=== PATIENT | female | born 1970 | race American Indian/Alaskan Native ===

== ENCOUNTER 2018-02-25 19:07 | Observation (INO) | payer BC, MEDICAID, OTHER ==
[2018-02-25 19:08] VITALS: BMI 19.8
[2018-02-25] MEDS ORDERED: Famotidine 20mg/50ml 20 MG/50 ML BAG IVPB STA (19:32)
[2018-02-25] MEDS ORDERED: Sodium Chloride 0.9% 1,000 ML IV STA ×2 (19:33→22:18)
[2018-02-25] MEDS ORDERED: Famotidine 20mg/50ml 20 MG/50 ML BAG IVPB ONE (19:33)
--- NOTE | 2018-02-25 19:36 | ED PDOC ---
HPI: General Adult Time Seen by Provider: 02/25/18 19:34 Chief Complaint (Nursing): Dizziness/Lightheaded Chief Complaint (Provider): dizziness/vomiting History Per: Patient (47 y/o female h/o Diabetes/ gastroparesis here for abdominal pain /dizziness/vomiting. States she was seen at [facility] for similar illness. Denies any fevers/chills. Has had surgery Cxn/ovarian mass removal.) Past Medical History Reviewed: Historical Data, Nursing Documentation, Vital Signs Vital Signs: Last Vital Signs Temp 98.0 F 02/26/18 15:02 Pulse 100 H 02/26/18 15:02 Resp 22 02/26/18 15:02 BP 144/90 02/26/18 15:02 Pulse Ox 100 02/26/18 15:02 - Medical History PMH: Anxiety, Arthritis, Cardia Arrhythmia (TACHYCARDIA), Depression, Diabetes, Gastritis, GERD, HTN, Hyperthyroidism, Migraine, Pneumonia Denies: Hepatitis, Hypothyroidism, Chronic Kidney Disease - Surgical History Surgical History: Endoscopy - Family History Family History: States: Unknown Family Hx - Immunization History Hx Tetanus Toxoid Vaccination: No Hx Influenza Vaccination: No Hx Pneumococcal Vaccination: Yes - Home Medications Home Medications: Ambulatory Orders Medication Instructions Recorded Propranolol [Inderal] 20 mg PO BID 12/07/15 ALPRAZolam [Xanax] 1 mg PO DAILY 12/03/16 Metoclopramide HCl [Reglan] 5 mg PO TID 09/30/17 - Allergies Allergies/Adverse Reactions: Allergies Allergy/AdvReac Type Severity Reaction Status Date / Time No Known Allergies Allergy Verified 02/25/18 19:09 Review of Systems ROS Statement: Except As Marked, All Systems Reviewed And Found Negative Physical Exam - Reviewed Nursing Documentation Reviewed: Yes Vital Signs Reviewed: Yes - Physical Exam Appears: Positive for: Well, Non-toxic, No Acute Distress Head Exam: Positive for: ATRAUMATIC, NORMAL INSPECTION, NORMOCEPHALIC Skin: Positive for: Normal Color, Warm, DRY Eye Exam: Positive for: EOMI, Normal appearance, PERRL ENT: Positive for: Normal ENT Inspection Neck: Positive for: Normal, Painless ROM Cardiovascular/Chest: Positive for: Regular Rate, Rhythm Respiratory: Positive for: CNT, Normal Breath Sounds Gastrointestinal/Abdominal: Positive for: Normal Exam, Soft, Tenderness ( EPIGASTRIC TENDERNESS) Back: Positive for: Normal Inspection Extremity: Positive for: Normal ROM Neurologic/Psych: Positive for: Alert, Oriented - Laboratory Results Result Diagrams: 02/26/18 05:40 02/26/18 05:40 - ECG O2 Sat by Pulse Oximetry: 100 Disposition - Clinical Impression Clinical Impression: Vomiting, Dizziness, Hydrocephalus - Patient ED Disposition Is Patient to be Admitted: Transfer of Care - Disposition Disposition: Transfer of Care Disposition Time: 20:00 Condition: FAIR Patient Signed Over To: Glo Murphy PA-C Handoff Comments: PENDING BLOODWORK/XRY/RE-EVAL
[2018-02-25 20:06] LABS: BASO % 0.5 % (0.0-2.0); EOS % 0.1 % (0.0-4.0); HEMOGLOBIN 14.8 g/dL (12.0-16.0); LYMPH % 12.7 % (20.0-40.0); MEAN CELL VOLUME 93.4 fl (81.0-99.0); MEAN CORPUSCULAR HEMOGLOBIN 31.9 pg (27.0-31.0); MEAN CORPUSCULAR HGB CONC 34.1 g/dL (33.0-37.0); MEAN PLATELET VOLUME 7.9 fl (7.2-11.7); MONO # 0.3 K/uL (0.0-0.8); MONO % 3.9 % (0.0-10.0); NEUT # 6.6 K/uL (1.8-7.0); NEUT % 82.8 % (50.0-75.0); RBC 4.64 Mil/uL (3.80-5.20); RED CELL DISTRIBUTION WIDTH 13.7 % (11.5-14.5)
[2018-02-25 20:35] LABS: ALB/GLOB RATIO 1.4 (1.0-2.1); ALBUMIN 4.9 g/dL (3.5-5.0); ALT/SGPT 26 U/L (9-52); AST/SGOT 40 U/L (14-36); BLOOD UREA NITROGEN 15 mg/dl (7-17); CALCIUM 9.9 mg/dL (8.4-10.2); GFR AFRICAN-AMERICAN > 60; GFR NON-AFRICAN AMERICAN > 60; LIPASE 96 U/L (23-300)
[2018-02-25 22:12] LABS: SQUAMOUS EPITHIAL 3 /hpf (0-5); URINE BILIRUBIN NEGATIVE (NEGATIVE); URINE BLOOD NEGATIVE (NEGATIVE); URINE CLARITY SLIGHTY-CLOUDY (Clear); URINE COLOR YELLOW (YELLOW); URINE GLUCOSE (UA) NEG (Normal); URINE LEUKOCYTE ESTERASE SMALL Leu/uL (Negative); URINE PROTEIN NEGATIVE (NEGATIVE); URINE UROBILINOGEN 0.2-1.0 mg/dL (0.2-1.0)
--- NOTE | 2018-02-25 22:24 | ED PDOC ---
- Laboratory Results Result Diagrams: 02/25/18 20:02 02/25/18 20:02 - ECG O2 Sat by Pulse Oximetry: 100 <Glo Murphy PA-C - Last Filed: 02/26/18 03:48> - Laboratory Results Result Diagrams: 02/26/18 05:40 02/26/18 05:40 <Nancie Kaufman - Last Filed: 02/28/18 18:34> Medical Decision Making <Glo Murphy PA-C - Last Filed: 02/26/18 03:48> <Nancie Kaufman - Last Filed: 02/28/18 18:34> Medical Decision Making: Case endorsed to me from FELIPA Molina at 1999 pending XR and re-evaluation. Labs reviewed and wnl. Uhcg (-), Udip (+) ketones, (+) small leuks. Urine cx sent and pending. 2215 On re-evaluation, patient reports no abdominal pain or nausea, however continues to c/o dizziness described as lightheadedness worse when she stands, not affected by head movement. On exam, patient remains AAOx3, in mild distress. Lungs clear to auscultation, cardiac RRR, abdomen soft, non-tender, repeat neuro exam : no nystagmus noted, gait unsteady, patient unable to stand up straight secondary to dizziness, rest of the neuro exam shows no other focal findings. Considering patient's continued dizziness CT head, EKG, troponin, UDS , continue IVF and meclizine PO ordered. 2330 CT head : FINDINGS: Brain: Diffuse sulcal effacement, concerning for cerebral edema. No hemorrhage. No significant white matter disease. Ventricles: Diffuse enlargement of the ventricular system. Bones/joints: Unremarkable. No acute fracture. Soft tissues: Unremarkable. Sinuses: Unremarkable as visualized. No acute sinusitis. Mastoid air cells: Unremarkable as visualized. No mastoid effusion. IMPRESSION: 1. Diffuse sulcal effacement, concerning for cerebral edema. 2. Diffuse enlargement of the ventricular system. Findings were discussed with Glo Harrison at 02/25/2018 11:32 PM EDT. Dictated and Authenticated by: Michelle Nava MD 02/25/2018 11:34 PM Eastern Time ([place] & [place]) Prior medical records reviewed, patient's last head CT was 10/05/13, which showed no acute intracranial process. On further questioning, the patient reports no history of swelling to her brain or increase in fluid in her brain. She states that the dizziness has been present for 1 month and is new, she has never had prior dizziness in the past. ER MD made aware of CT findings and case discussed. ER MD evaluated the patient at bedside. Case d/w Dr. Castellano, recommends MRI w/wo brain in the AM, diamox 250 mg PO and decadron 10 mg IV. Case d/w Dr. Diaz, will admit for obs. (Glo Murphy PA-C) Disposition Counseled Patient/Family Regarding: Studies Performed, Diagnosis - POA Present On Arrival: None - Disposition Disposition: Hospitalized as Observation Patient Disposition Time: 00:00 <Glo Murphy PA-C - Last Filed: 02/26/18 03:48> <Nancie Kaufman - Last Filed: 02/28/18 18:34> - Clinical Impression Clinical Impression: Vomiting, Dizziness, Hydrocephalus - Disposition Condition: FAIR - PA / QUALITY MANAGEMENT COORDINATOR / Resident Statement / has reviewed & agrees with the documentation as recorded. /DO has examined the patient and agrees with the treatment plan. <Glo Murphy PA-C - Last Filed: 02/26/18 03:48> Attending/Attestation <Glo Murphy PA-C - Last Filed: 02/26/18 03:48> - Attestation I have personally seen and examined this patient.: Yes I have fully participated in the care of the patient.: Yes I have reviewed all pertinent clinical information: Yes <Nancie Kaufman - Last Filed: 02/28/18 18:34> - Attestation Notes (Text): Ataxic gait with cerebral edema and ventricular dilatation. Hospitalized for further management. (Nancie Kaufman)
[2018-02-25 23:46] LABS: BARBITURATES, UR NEGATIVE (NEGATIVE); BENZODIAZEPINES, UR POSITIVE (NEGATIVE); OPIATES, UR NEGATIVE (NEGATIVE); PHENCYCLIDINE, UR NEGATIVE (NEGATIVE)
[2018-02-26] MEDS ORDERED: Dexamethasone 10 MG in Sodium Chloride 0.9% 50 ML IV ONE ×2 (00:07→10:40)
[2018-02-26] MEDS: Dextrose 5%/0.45% NS 1,000 ML IV SCH ×2 (02:48→07:14)
[2018-02-26 06:05] LABS: HEMOGLOBIN 14.2 g/dL (12.0-16.0); MEAN CELL VOLUME 95.1 fl (81.0-99.0); MEAN CORPUSCULAR HEMOGLOBIN 31.7 pg (27.0-31.0); MEAN CORPUSCULAR HGB CONC 33.3 g/dL (33.0-37.0); RBC 4.47 Mil/uL (3.80-5.20); RED CELL DISTRIBUTION WIDTH 13.6 % (11.5-14.5); WHITE BLOOD COUNT 7.3 K/uL (4.8-10.8)
[2018-02-26 07:07] LABS: ALB/GLOB RATIO 1.5 (1.0-2.1); ALBUMIN 4.5 g/dL (3.5-5.0); ALT/SGPT 19 U/L (9-52); AST/SGOT 45 U/L (14-36); BLOOD UREA NITROGEN 8 mg/dl (7-17); CALCIUM 9.4 mg/dL (8.4-10.2); GFR AFRICAN-AMERICAN > 60; GFR NON-AFRICAN AMERICAN > 60
--- NOTE | 2018-02-26 08:09 | CT ---
PROCEDURE: CT HEAD WITHOUT CONTRAST. HISTORY: dizziness COMPARISON: None available. TECHNIQUE: Axial computed tomography images were obtained through the head/brain without intravenous contrast. Coronal and sagittal reconstructed images. Radiation dose: Total exam DLP = 812.71 mGy-cm. This CT exam was performed using one or more of the following dose reduction techniques: Automated exposure control, adjustment of the mA and/or kV according to patient size, and/or use of iterative reconstruction technique. FINDINGS: HEMORRHAGE: No intracranial hemorrhage. BRAIN: Diffuse edema No atrophy or chronic microvascular ischemic changes. VENTRICLES: Dilatation of the ventricles including prominent temporal horns. The 4th ventricle is patent. CALVARIUM: Unremarkable. PARANASAL SINUSES: Unremarkable as visualized. No significant inflammatory changes. MASTOID AIR CELLS: Unremarkable as visualized. No inflammatory changes. OTHER FINDINGS: None. IMPRESSION: Diffuse cerebral edema without midline shift. Ventriculomegaly without obstructing lesion. Concordant results (preliminary interpretation) provided by [employer]. Procedure Completed: 22:29 Preliminary ([facility]) Report: Dictated and Authenticated: 23:34 Final Interpretation: 08:07 February 26, 2018.
--- NOTE | 2018-02-26 08:26 | CARD ---
APPROVED REPORT EKG Measurement Heart [id number] <Conclusion> Normal sinus rhythm with sinus arrhythmia Right bundle branch block Abnormal ECG
--- NOTE | 2018-02-26 08:42 | RAD ---
PROCEDURE: Radiographs of the chest and abdomen (obstructive series) HISTORY: abdominal pain COMPARISON: No prior. TECHNIQUE: AP radiograph of the chest, with upright and supine radiographs of the abdomen. FINDINGS: CHEST: Lungs: Clear. Cardiovascular: Normal size heart. No pulmonary vascular congestion. Pleura: No pleural fluid. No pneumothorax. Other findings: None. ABDOMEN AND PELVIS: Bowel: Unremarkable bowel gas pattern. No evidence of mechanical obstruction. Free air: None. Bones: Unremarkable. Other findings: None. IMPRESSION: Unremarkable radiographs of chest and abdomen. No evidence of mechanical bowel obstruction.
[2018-02-26] MEDS ORDERED: Gadodiamide 287 MG/ML VIAL (15ML) IV ONE (09:24)
[2018-02-26] MEDS ORDERED: Magnesium Sulfate 2 gm/50 ml 2 GM/50 ML BAG IVPB ONE (10:41)
[2018-02-26] MEDS ORDERED: Valproate 500 MG in Sodium Chloride 0.9% 100 ML IVPB ONE (10:42)
[2018-02-26] MEDS ORDERED: Sodium Chloride 0.9% 1,000 ML IV SCH (10:45)
[2018-02-26] MEDS ORDERED: Sterile Water 10 ML IV ONE (11:49)
--- NOTE | 2018-02-26 12:01 | CP.PCM.HP ---
History of Present Illness - History of Present Illness History of Present Illness: 47 yo F, PMH diabetes and gastritis presented to ED with complaint of headache/ dizziness. Most of history obtained from pt's daughter Cady, who was present at bedside. Pt has been having headaches and dizziness since December of this year; presented to the ED last night for nausea, vomiting, headache and lightheadedness. She was also noted to have dysarthria. PMH: gastritis, diabetes Past Surg hx: x3, hysterectomy, L wrist surgery Fam hx: noncontributory Allergies: nkda Pt's daughter Cady states she is POA, and wishes to be the only family member communicated with. Phone number: [phone]. CT done in ED showed cerebral edema; pt was to be admitted. Neurology was consulted (Dr. Castellano)- decadron 20 mg and diamox 500 mg. However, MRI showed with a contrast enhancing mass in the 4th ventricle. Neurosurgery (Dr. Rehman) recommended emergent transfer to higher level facility with neuro ICU. Present on Admission - Present on Admission Any Indicators Present on Admission: Yes History of Uncontrolled Diabetes: Yes Review of Systems - Review of Systems Review of Systems: positive for headache, difficulty speaking, dizziness, lightheadedness, nausea Past Patient History - Infectious Disease Hx of Infectious Diseases: None - Past Medical History & Family History Past Medical History?: Yes - Past Social History Smoking Status: Never Smoked - CARDIAC Hx Cardia Arrhythmia: Yes (TACHYCARDIA) Hx Hypertension: Yes - PULMONARY Hx Pneumonia: Yes - NEUROLOGICAL Hx Migraine: Yes - HEENT Hx HEENT Problems: Yes Other/Comment: DIABETIC RETINOPATHY - RENAL Hx Chronic Kidney Disease: No - ENDOCRINE/METABOLIC Hx Hyperthyroidism: Yes Hx Hypothyroidism: No - INTEGUMENTARY Hx Dermatological Problems: No - MUSCULOSKELETAL/RHEUMATOLOGICAL Hx Arthritis: Yes - GASTROINTESTINAL Hx Gastritis: Yes - PSYCHIATRIC Hx Anxiety: Yes Hx Depression: Yes - SURGICAL HISTORY Hx Surgeries: Yes Hx Section: Yes (X 3) Hx Eye Surgery: Yes (LEFT EYE RETINAL REPAIR) Hx Hysterectomy: Yes (2000) Hx Orthopedic Surgery: Yes (RIGHT toes (3 & 4TH TOES)) - ANESTHESIA Hx Anesthesia: Yes Hx Anesthesia Reactions: No Hx Malignant Hyperthermia: No Meds Allergies/Adverse Reactions: Allergies Allergy/AdvReac Type Severity Reaction Status Date / Time No Known Allergies Allergy Verified 02/25/18 19:09 Physical Exam - Constitutional Appears: No Acute Distress - Head Exam Head Exam: NORMAL INSPECTION - Eye Exam Eye Exam: Normal appearance, PERRL - ENT Exam ENT Exam: Mucous Membranes Moist - Respiratory Exam Respiratory Exam: Clear to Auscultation Bilateral, NORMAL BREATHING PATTERN - Cardiovascular Exam Cardiovascular Exam: REGULAR RHYTHM - GI/Abdominal Exam GI & Abdominal Exam: Normal Bowel Sounds, Soft - Extremities Exam Extremities exam: Negative for: calf tenderness - Neurological Exam Additional comments: awake, alert PEERL no facial droop no focal deficits - Skin Skin Exam: Normal Color, Warm Results - Vital Signs Recent Vital Signs: Last Vital Signs Temp 97.7 F 02/26/18 06:38 Pulse 79 02/26/18 06:38 Resp 14 02/26/18 06:38 BP 131/89 02/26/18 06:38 Pulse Ox 100 02/26/18 06:38 - Labs Result Diagrams: 02/26/18 05:40 02/26/18 05:40 Labs: Laboratory Results - last 24 hr 02/25/18 02/25/18 02/25/18 19:57 20:02 20:02 WBC 8.0 RBC 4.64 Hgb 14.8 Hct 43.4 MCV 93.4 D MCH 31.9 H MCHC 34.1 RDW 13.7 Plt Count 214 MPV 7.9 Neut % (Auto) 82.8 H Lymph % (Auto) 12.7 L Atkinson % (Auto) 3.9 Eos % (Auto) 0.1 Baso % (Auto) 0.5 Neut # (Auto) 6.6 Lymph # (Auto) 1.0 Atkinson # (Auto) 0.3 Eos # (Auto) 0.0 Baso # (Auto) 0.0 Sodium 137 Potassium 4.7 Chloride 99 Carbon Dioxide 26 Anion Gap 17 BUN 15 Creatinine 0.6 L Est GFR ( Amer) > 60 Est GFR (Non-Af Amer) > 60 POC Glucose (mg/dL) 110 Random Glucose 109 H Calcium 9.9 Total Bilirubin 1.2 AST 40 H D ALT 26 Alkaline Phosphatase 48 Troponin I Total Protein 8.4 H Albumin 4.9 Globulin 3.5 Albumin/Globulin Ratio 1.4 Lipase 96 Urine Color Urine Clarity Urine pH Ur Specific [place] Urine Protein Urine Glucose (UA) Urine Ketones Urine Blood Urine Nitrate Urine Bilirubin Urine Urobilinogen Ur Leukocyte Esterase Urine Microscopic WBC Ur Squamous Epith Cells Urine Opiates Screen Urine Methadone Screen Ur Barbiturates Screen Ur Phencyclidine Scrn Ur Amphetamines Screen U Benzodiazepines Scrn U Oth Cocaine Metabols U Cannabinoids Screen 02/25/18 02/25/18 02/25/18 21:30 23:24 23:24 WBC RBC Hgb Hct MCV MCH MCHC RDW Plt Count MPV Neut % (Auto) Lymph % (Auto) Atkinson % (Auto) Eos % (Auto) Baso % (Auto) Neut # (Auto) Lymph # (Auto) Atkinson # (Auto) Eos # (Auto) Baso # (Auto) Sodium Potassium Chloride Carbon Dioxide Anion Gap BUN Creatinine Est GFR ( Amer) Est GFR (Non-Af Amer) POC Glucose (mg/dL) Random Glucose Calcium Total Bilirubin AST ALT Alkaline Phosphatase Troponin I < 0.0120 Total Protein Albumin Globulin Albumin/Globulin Ratio Lipase Urine Color Yellow Urine Clarity Slighty-cloudy Urine pH 7.0 Ur Specific [place] 1.013 Urine Protein Negative Urine Glucose (UA) Neg Urine Ketones 20 Urine Blood Negative Urine Nitrate Negative Urine Bilirubin Negative Urine Urobilinogen 0.2-1.0 Ur Leukocyte Esterase Small Urine Microscopic WBC 2 Ur Squamous Epith Cells 3 Urine Opiates Screen Negative Urine Methadone Screen Negative Ur Barbiturates Screen Negative Ur Phencyclidine Scrn Negative Ur Amphetamines Screen Negative U Benzodiazepines Scrn Positive U Oth Cocaine Metabols Negative U Cannabinoids Screen Negative 02/26/18 02/26/18 02/26/18 05:40 05:40 06:31 WBC 7.3 RBC 4.47 Hgb 14.2 Hct 42.5 MCV 95.1 MCH 31.7 H MCHC 33.3 RDW 13.6 Plt Count 218 MPV Neut % (Auto) Lymph % (Auto) Atkinson % (Auto) Eos % (Auto) Baso % (Auto) Neut # (Auto) Lymph # (Auto) Atkinson # (Auto) Eos # (Auto) Baso # (Auto) Sodium 140 Potassium 4.0 Chloride 109 H Carbon Dioxide 20 L Anion Gap 15 BUN 8 Creatinine 0.6 L Est GFR ( Amer) > 60 Est GFR (Non-Af Amer) > 60 POC Glucose (mg/dL) 139 H Random Glucose 141 H Calcium 9.4 Total Bilirubin 0.9 AST 45 H ALT 19 Alkaline Phosphatase 46 Troponin I Total Protein 7.6 Albumin 4.5 Globulin 3.0 Albumin/Globulin Ratio 1.5 Lipase Urine Color Urine Clarity Urine pH Ur Specific [place] Urine Protein Urine Glucose (UA) Urine Ketones Urine Blood Urine Nitrate Urine Bilirubin Urine Urobilinogen Ur Leukocyte Esterase Urine Microscopic WBC Ur Squamous Epith Cells Urine Opiates Screen Urine Methadone Screen Ur Barbiturates Screen Ur Phencyclidine Scrn Ur Amphetamines Screen U Benzodiazepines Scrn U Oth Cocaine Metabols U Cannabinoids Screen Assessment & Plan (1) Brain neoplasm Status: Acute Priority: High Comment: Given findings on MRI and recommendations of neurosurg consult, pt to be transferred to higher level facility for continued workup. Pt will be transferred to [place].
--- NOTE | 2018-02-26 12:01 | MRI ---
PROCEDURE: MRI BRAIN WITH AND WITHOUT CONTRAST HISTORY: cerebral edema COMPARISON: Noncontrast head CT 02/25/2018. TECHNIQUE: Multiplanar, multisequence MR images of the brain were obtained with and without intravenous contrast enhancement. FINDINGS: HEMORRHAGE: None DWI: No evidence of an acute or early subacute infarction. BRAIN PARENCHYMA: There is a mass enhancing the 4th ventricle measuring 1.6 x 1.5 x 1.9 cm (transverse by anteroposterior by superoinferior dimensions). It is slightly T1 hypointense relative to normal brain parenchyma and appears hyperintense with long TR weighting. It exerts significant mass effect relative to the local medulla which appears kinked immediately inferior the mass and is rathere edematous. No blood flow voids are appreciated or hemosiderin associated. No additional abnormal enhancement is seen throughout the remaining brain. Mild hydrocephalus appears to be developing. This is likely car sales representative of possibly a cord plexus papilloma or an ependymoma though the latter are less frequent in adults than children. There is no restricted diffusion associated and an epidermoid is not felt to be likely. Epidermoids also barely enhance if at all. Hemangioblastoma is still not excluded. Neurosurgical consultation is advised. Above the tentorium, cerebral parenchyma is remarkable only for limited probable subependymal edema diffusely bilaterally with occasional nonenhancing nonspecific long TR hyperintensities identified in the right frontal and left parietal lobe in particular. No cortical edema is identified and there is no evidence of an acute or subacute brain infarction. No suspicious extra-axial fluid collection is identified. CRANIUM: Unremarkable. ORBITS: Grossly unremarkable. PARANASAL SINUSES/MASTOIDS: Clear VASCULAR SYSTEM: Skull base flow voids intact. OTHER FINDINGS: None . IMPRESSION: 1.9 cm low 4th ventricular mass exerting mass effect on the medulla which is edematous secondarily, suspicious for neoplasm. Mild obstructive hydrocephalus has developed. Neurosurgical consultation is advised. Nonspecific long TR hyperintensities identified at the right frontal and left parietal lobes of uncertain origin. Remaining white matter exclusive of the subependymal space and the medulla is unremarkable. None enhance. Findings discussed with Dr. Diaz with written down and read back verification, 02/26/2018 11 o'clock a.m..
--- NOTE | 2018-02-26 12:47 | CP.PCM.PN ---
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 This type of surgery needs [facility] where there is a dedicated neuro icu for post op care suggest transfer to [facility] as this would be best suited for this type of pathology treating this in a [facility] would be less then standard of care Objective - Vital Signs/Intake and Output Vital Signs (last 24 hours): Temp Pulse Resp BP Pulse Ox 98.2 F 98 H 17 134/97 H 97 02/26/18 12:29 02/26/18 12:11 02/26/18 12:11 02/26/18 12:11 02/26/18 12:11 - Medications Medications: Current Medications Dexamethasone (Decadron Inj) 10 mg IV ONCE ONE Stop: 02/26/18 11:46 Last Admin: 02/26/18 11:49 Dose: 10 mg Sodium Chloride (Sodium Chloride 0.9%) 1,000 mls @ 80 mls/hr IV .[id number] [facility] Last Admin: 02/26/18 11:50 Dose: 80 mls/hr Magnesium Sulfate (Magnesium Sulfate 2 Gm/50 Ml Water) 2 gm in 50 mls @ 50 mls/ hr IVPB ONCE ONE PRN Reason: 2 GM/HR Stop: 02/26/18 11:40 Valproate Sodium 500 mg/ (Sodium Chloride) 105 mls @ 105 mls/hr IVPB ONCE ONE PRN Reason: As Directed Stop: 02/26/18 11:41 Last Admin: 02/26/18 11:50 Dose: 105 mls/hr Acetazolamide 250 mg/ Sodium (Chloride) 50 mls @ 100 mls/hr IV Q12 JANNETH Stop: 02/28/18 09:01 Pantoprazole Sodium (Protonix Inj) 40 mg IVP DAILY [facility] Last Admin: 02/26/18 11:49 Dose: 40 mg - Labs Labs: 02/26/18 05:40 02/26/18 05:40
[2018-02-26] MEDS ORDERED: Magnesium Sulfate 2 gm/50 ml 2 GM/50 ML BAG ONE (13:57)
--- NOTE | 2018-02-26 14:37 | CP.PCM.CON ---
History of Present Illness - History of Present Illness History of Present Illness: Neurology Consultation Note: Mrs. Meng is a 47-year-old woman who states that since December she has been having progressive daily headaches. On several occasions, she has had light headedness and right arm transient paralysis. She presented to the ED last night for nausea, vomiting, headache and lightheadedness. She was also noted to be dysarthric. CT scan of the head showed edema. 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 She was given decadron 20 mg and Diamox 500 mg thus far. Neurosurgery was consulted and recommended emergent transfer to a tertiary center. Review of Systems - Review of Systems All systems: reviewed and no additional remarkable complaints except Past Patient History - Infectious Disease Hx of Infectious Diseases: None - Past Medical History & Family History Past Medical History?: Yes - Past Social History Smoking Status: Never Smoked - CARDIAC Hx Cardia Arrhythmia: Yes (TACHYCARDIA) Hx Hypertension: Yes - PULMONARY Hx Pneumonia: Yes - NEUROLOGICAL Hx Migraine: Yes - HEENT Hx HEENT Problems: Yes Other/Comment: DIABETIC RETINOPATHY - RENAL Hx Chronic Kidney Disease: No - ENDOCRINE/METABOLIC Hx Hyperthyroidism: Yes Hx Hypothyroidism: No - INTEGUMENTARY Hx Dermatological Problems: No - MUSCULOSKELETAL/RHEUMATOLOGICAL Hx Arthritis: Yes - GASTROINTESTINAL Hx Gastritis: Yes - PSYCHIATRIC Hx Anxiety: Yes Hx Depression: Yes Hx Substance Use: No - SURGICAL HISTORY Hx Surgeries: Yes Hx Section: Yes (X 2) Hx Eye Surgery: Yes (LEFT EYE RETINAL REPAIR) Hx Hysterectomy: Yes (2000) Hx Orthopedic Surgery: Yes (RIGHT toes (3 & 4TH TOES)) Other/Comment: RIGHT OVARIAN TUMOR? november 2016 - ANESTHESIA Hx Anesthesia: Yes Hx Anesthesia Reactions: No Hx Malignant Hyperthermia: No Meds Allergies/Adverse Reactions: Allergies Allergy/AdvReac Type Severity Reaction Status Date / Time No Known Allergies Allergy Verified 02/25/18 19:09 - Medications Medications: Current Medications Sodium Chloride (Sodium Chloride 0.9%) 1,000 mls @ 80 mls/hr IV .[id number] [facility] Last Admin: 02/26/18 11:50 Dose: 80 mls/hr Acetazolamide 250 mg/ Sodium (Chloride) 50 mls @ 100 mls/hr IV Q12 JANNETH Stop: 02/28/18 09:01 Pantoprazole Sodium (Protonix Inj) 40 mg IVP DAILY [facility] Last Admin: 02/26/18 11:49 Dose: 40 mg Physical Exam - Neurological Exam Neurological exam: Abnormal Gait, Alert, CN II-XII Intact, Oriented x3, Reflexes Normal Additional comments: Dysarthric, but no other notable cranial nerve deficits. Slightly ataxic R>L. Reflexes are brisk. Sensation is intact throughout. Results - Vital Signs Recent Vital Signs: Last Vital Signs Temp 98.2 F 02/26/18 12:29 Pulse 98 H 02/26/18 12:11 Resp 17 02/26/18 12:11 BP 134/97 H 02/26/18 12:11 Pulse Ox 97 02/26/18 12:11 - Labs Result Diagrams: 02/26/18 05:40 02/26/18 05:40 Labs: Laboratory Results - last 24 hr 02/25/18 02/25/18 02/25/18 19:57 20:02 20:02 WBC 8.0 RBC 4.64 Hgb 14.8 Hct 43.4 MCV 93.4 D MCH 31.9 H MCHC 34.1 RDW 13.7 Plt Count 214 MPV 7.9 Neut % (Auto) 82.8 H Lymph % (Auto) 12.7 L [place] % (Auto) 3.9 Eos % (Auto) 0.1 Baso % (Auto) 0.5 Neut # (Auto) 6.6 Lymph # (Auto) 1.0 [place] # (Auto) 0.3 Eos # (Auto) 0.0 Baso # (Auto) 0.0 Sodium 137 Potassium 4.7 Chloride 99 Carbon Dioxide 26 Anion Gap 17 BUN 15 Creatinine 0.6 L Est GFR ( Amer) > 60 Est GFR (Non-Af Amer) > 60 POC Glucose (mg/dL) 110 Random Glucose 109 H Calcium 9.9 Total Bilirubin 1.2 AST 40 H D ALT 26 Alkaline Phosphatase 48 Troponin I Total Protein 8.4 H Albumin 4.9 Globulin 3.5 Albumin/Globulin Ratio 1.4 Lipase 96 Urine Color Urine Clarity Urine pH Ur Specific [place] Urine Protein Urine Glucose (UA) Urine Ketones Urine Blood Urine Nitrate Urine Bilirubin Urine Urobilinogen Ur Leukocyte Esterase Urine Microscopic WBC Ur Squamous Epith Cells Urine Opiates Screen Urine Methadone Screen Ur Barbiturates Screen Ur Phencyclidine Scrn Ur Amphetamines Screen U Benzodiazepines Scrn U Oth Cocaine Metabols U Cannabinoids Screen 02/25/18 02/25/18 02/25/18 21:30 23:24 23:24 WBC RBC Hgb Hct MCV MCH MCHC RDW Plt Count MPV Neut % (Auto) Lymph % (Auto) [place] % (Auto) Eos % (Auto) Baso % (Auto) Neut # (Auto) Lymph # (Auto) [place] # (Auto) Eos # (Auto) Baso # (Auto) Sodium Potassium Chloride Carbon Dioxide Anion Gap BUN Creatinine Est GFR ( Amer) Est GFR (Non-Af Amer) POC Glucose (mg/dL) Random Glucose Calcium Total Bilirubin AST ALT Alkaline Phosphatase Troponin I < 0.0120 Total Protein Albumin Globulin Albumin/Globulin Ratio Lipase Urine Color Yellow Urine Clarity Slighty-cloudy Urine pH 7.0 Ur Specific [place] 1.013 Urine Protein Negative Urine Glucose (UA) Neg Urine Ketones 20 Urine Blood Negative Urine Nitrate Negative Urine Bilirubin Negative Urine Urobilinogen 0.2-1.0 Ur Leukocyte Esterase Small Urine Microscopic WBC 2 Ur Squamous Epith Cells 3 Urine Opiates Screen Negative Urine Methadone Screen Negative Ur Barbiturates Screen Negative Ur Phencyclidine Scrn Negative Ur Amphetamines Screen Negative U Benzodiazepines Scrn Positive U Oth Cocaine Metabols Negative U Cannabinoids Screen Negative 02/26/18 02/26/18 02/26/18 05:40 05:40 06:31 WBC 7.3 RBC 4.47 Hgb 14.2 Hct 42.5 MCV 95.1 MCH 31.7 H MCHC 33.3 RDW 13.6 Plt Count 218 MPV Neut % (Auto) Lymph % (Auto) [place] % (Auto) Eos % (Auto) Baso % (Auto) Neut # (Auto) Lymph # (Auto) [place] # (Auto) Eos # (Auto) Baso # (Auto) Sodium 140 Potassium 4.0 Chloride 109 H Carbon Dioxide 20 L Anion Gap 15 BUN 8 Creatinine 0.6 L Est GFR ( Amer) > 60 Est GFR (Non-Af Amer) > 60 POC Glucose (mg/dL) 139 H Random Glucose 141 H Calcium 9.4 Total Bilirubin 0.9 AST 45 H ALT 19 Alkaline Phosphatase 46 Troponin I Total Protein 7.6 Albumin 4.5 Globulin 3.0 Albumin/Globulin Ratio 1.5 Lipase Urine Color Urine Clarity Urine pH Ur Specific [place] Urine Protein Urine Glucose (UA) Urine Ketones Urine Blood Urine Nitrate Urine Bilirubin Urine Urobilinogen Ur Leukocyte Esterase Urine Microscopic WBC Ur Squamous Epith Cells Urine Opiates Screen Urine Methadone Screen Ur Barbiturates Screen Ur Phencyclidine Scrn Ur Amphetamines Screen U Benzodiazepines Scrn U Oth Cocaine Metabols U Cannabinoids Screen 02/26/18 12:14 WBC RBC Hgb Hct MCV MCH MCHC RDW Plt Count MPV Neut % (Auto) Lymph % (Auto) [place] % (Auto) Eos % (Auto) Baso % (Auto) Neut # (Auto) Lymph # (Auto) [place] # (Auto) Eos # (Auto) Baso # (Auto) Sodium Potassium Chloride Carbon Dioxide Anion Gap BUN Creatinine Est GFR ( Amer) Est GFR (Non-Af Amer) POC Glucose (mg/dL) 119 H Random Glucose Calcium Total Bilirubin AST ALT Alkaline Phosphatase Troponin I Total Protein Albumin Globulin Albumin/Globulin Ratio Lipase Urine Color Urine Clarity Urine pH Ur Specific [place] Urine Protein Urine Glucose (UA) Urine Ketones Urine Blood Urine Nitrate Urine Bilirubin Urine Urobilinogen Ur Leukocyte Esterase Urine Microscopic WBC Ur Squamous Epith Cells Urine Opiates Screen Urine Methadone Screen Ur Barbiturates Screen Ur Phencyclidine Scrn Ur Amphetamines Screen U Benzodiazepines Scrn U Oth Cocaine Metabols U Cannabinoids Screen Assessment & Plan (1) Neoplasm of brain causing mass effect on adjacent structures Assessment and Plan: The patient was accepted for transfer to [place] for possible surgical resection. We will continue Decadron 10 mg Q8 and Diamox 250 mg Q12. We may give her 2 mg of Valium for the dizziness. She also be kept NPO at this time. Thank you. Status: Acute Priority: High
[2018-02-26 15:03] VITALS: BP 144/90; PULSE 100; RESP 22; TEMP 98; O2SAT 100
[2018-02-26] MEDS ORDERED: acetaZOLAMIDE 250 MG in Sodium Chloride 0.9% 50 ML IV SCH (21:00)
== END 2018-02-26 15:22 | disposition short-term general hospital (02) ==
LOC: H.ER 19:07 → H.ERHOLD 02-26 00:02
PROVIDERS: ADMIT Family Medicine; ATTEND Family Medicine
DX: D49.6 Neoplasm of unspecified behavior of brain (principal); G91.9 Hydrocephalus, unspecified; R27.0 Ataxia, unspecified; R47.1 Dysarthria and anarthria; E11.319 Type 2 diabetes mellitus with unspecified diabetic retinopathy without macular edema; I10 Essential (primary) hypertension; F41.9 Anxiety disorder, unspecified; K21.9 Gastro-esophageal reflux disease without esophagitis; K29.70 Gastritis, unspecified, without bleeding; M19.90 Unspecified osteoarthritis, unspecified site; Z87.01 Personal history of pneumonia (recurrent)
CPT/HCPCS: 70450; 70553; 74022; 80053; 80324; 80345; 80346; 80349; 80353; 80358; 80361; 81003; 81025; 82948; 83690; 83992; 84484; 85025; 85027; 87086; 92526; 92610; 93005; 96361; 96365; 96367; 96372; 96375; 99285; A9579; C9113; G0378; G8996; G8997; G8998; J1100; J2060; J2405; J2765; J7030; J7042

== ENCOUNTER 2018-06-28 16:13 | Emergency (ER) | payer BC, MEDICAID, OTHER ==
[2018-06-28 16:13] VITALS: BMI 19.8
--- NOTE | 2018-06-28 17:47 | ED PDOC ---
HPI: Abdomen Time Seen by Provider: 06/28/18 16:33 Chief Complaint (Nursing): Abdominal Pain Chief Complaint (Provider): abdominal pain swelling History Per: Patient, Family History/Exam Limitations: no limitations Onset/Duration Of Symptoms: Days (5-7), Gradual Current Symptoms Are (Timing): Still Present Location Of Pain/Discomfort: Other (localized to shunt incision site) Associated Symptoms: denies: Fever, Chills, Nausea, Vomiting, Diarrhea, Loss Of Appetite, Back Pain, Chest Pain Exacerbating Factors: None Alleviating Factors: None Additional Complaint(s): 48yo female hx significant for brain tumor s/p resection and 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 Denies fever, redness to skin, drainage, headaches, change in mental status, syncope, trauma or seizures. Abnormal Vaginal Bleeding: No Past Medical History Reviewed: Historical Data, Nursing Documentation, Vital Signs Vital Signs: Last Vital Signs Temp 97.4 F L 06/28/18 16:17 Pulse 71 06/28/18 16:17 Resp 16 06/28/18 16:17 BP 160/99 H 06/28/18 16:17 Pulse Ox 100 06/28/18 16:17 - Medical History PMH: Anxiety, Arthritis, Cardia Arrhythmia (TACHYCARDIA), Depression, Diabetes, Gastritis, GERD, HTN, Hyperthyroidism, Migraine, Pneumonia Denies: Hepatitis, Hypothyroidism, Chronic Kidney Disease Other PMH: brain tumor - Surgical History Surgical History: Endoscopy Other surgeries: tumor resection - Family History Family History: States: Unknown Family Hx - Living Arrangements Living Arrangements: With Family - Social History Current smoker - smoking cessation education provided: No - Immunization History Hx Tetanus Toxoid Vaccination: No Hx Influenza Vaccination: No Hx Pneumococcal Vaccination: Yes - Home Medications Home Medications: Ambulatory Orders Medication Instructions Recorded Propranolol [Inderal] 20 mg PO BID 12/07/15 ALPRAZolam [Xanax] 1 mg PO DAILY 12/03/16 Metoclopramide HCl [Reglan] 5 mg PO TID 09/30/17 - Allergies Allergies/Adverse Reactions: Allergies Allergy/AdvReac Type Severity Reaction Status Date / Time No Known Allergies Allergy Verified 02/25/18 19:09 Review of Systems ROS Statement: Except As Marked, All Systems Reviewed And Found Negative Constitutional: Negative for: Fever Cardiovascular: Negative for: Chest Pain Respiratory: Negative for: Shortness of Breath Gastrointestinal: Positive for: Abdominal Pain (mild). Negative for: Nausea, Vomiting, Diarrhea Genitourinary Female: Negative for: Dysuria Musculoskeletal: Negative for: Neck Pain, Arm Pain, Back Pain Skin: Negative for: Rash, Lesions, Jaundice, Bruising Neurological: Negative for: Weakness, Numbness, Incoordination, Headache Physical Exam - Reviewed Nursing Documentation Reviewed: Yes Vital Signs Reviewed: Yes - Physical Exam Appears: Positive for: Well, Non-toxic, No Acute Distress Head Exam: Positive for: ATRAUMATIC, NORMAL INSPECTION, NORMOCEPHALIC Skin: Positive for: Normal Color, Warm, DRY Eye Exam: Positive for: EOMI, Normal appearance, PERRL ENT: Positive for: Normal ENT Inspection Neck: Positive for: Painless ROM, Supple (posterior midline incisional scar healed nontender, shunt palpable L neck), Trachea Midline Cardiovascular/Chest: Positive for: Regular Rate, Rhythm Respiratory: Positive for: CNT, Normal Breath Sounds Gastrointestinal/Abdominal: Positive for: Normal Exam, Soft, Other (shunt abdominal incision intact without noted edema, erythema or drainage. Mildly tender to area.). Negative for: Tenderness Back: Positive for: Normal Inspection Extremity: Positive for: Normal ROM Neurologic/Psych: Positive for: Alert, Oriented. Negative for: Motor/Sensory Deficits - Laboratory Results Result Diagrams: 06/28/18 17:38 06/28/18 17:38 - ECG O2 Sat by Pulse Oximetry: 100 Medical Decision Making Medical Decision Making: obtain labs and CT abd pelv given tenderness labs unremarkable Disposition - Clinical Impression Clinical Impression: Abdominal pain - Patient ED Disposition Is Patient to be Admitted: Transfer of Care - Disposition Disposition: Transfer of Care Disposition Time: 19:00 Condition: STABLE Forms: [employer] (Slovenian) Patient Signed Over To: Lindsey Hendricks
[2018-06-28 17:48] LABS: BASO # 0.1 K/uL (0.0-0.2); BASO % 0.8 % (0.0-2.0); EOS % 0.1 % (0.0-4.0); HEMOGLOBIN 13.7 g/dL (12.0-16.0); LYMPH # 1.9 K/uL (1.0-4.3); LYMPH % 26.2 % (20.0-40.0); MEAN CELL VOLUME 93.7 fl (81.0-99.0); MEAN CORPUSCULAR HEMOGLOBIN 30.5 pg (27.0-31.0); MEAN CORPUSCULAR HGB CONC 32.6 g/dL (33.0-37.0); MEAN PLATELET VOLUME 8.7 fl (7.2-11.7); MONO # 0.5 K/uL (0.0-0.8); MONO % 6.7 % (0.0-10.0); NEUT # 4.8 K/uL (1.8-7.0); NEUT % 66.2 % (50.0-75.0); NRBC % 0.1 % (0.0-0.0); RBC 4.48 Mil/uL (3.80-5.20); RED CELL DISTRIBUTION WIDTH 13.2 % (11.5-14.5); WHITE BLOOD COUNT 7.2 K/uL (4.8-10.8)
[2018-06-28 17:54] LABS: ALB/GLOB RATIO 1.3 (1.0-2.1); ALBUMIN 4.3 g/dL (3.5-5.0); ALT/SGPT 27 U/L (9-52); AST/SGOT 26 U/L (14-36); BLOOD UREA NITROGEN 8 mg/dl (7-17); CALCIUM 8.7 mg/dL (8.4-10.2); GFR NON-AFRICAN AMERICAN > 60
[2018-06-28] MEDS ORDERED: Sodium Chloride 0.9% 50 ML IV ONE (18:24)
[2018-06-28] MEDS ORDERED: Iohexol 300 100 ML IJ ONE (18:24)
[2018-06-28 19:55] VITALS: RESP 15
--- NOTE | 2018-06-28 20:09 | ED PDOC ---
- Laboratory Results Result Diagrams: 06/28/18 17:38 06/28/18 17:38 - ECG O2 Sat by Pulse Oximetry: 100 - CT Scan/US CT abdomen and pelvis with IV contrast Other Rad Studies (CT/US): Read By Radiologist, Radiology Report Reviewed (see MDM note) - Progress Re-evaluation Time: 21:20 Condition: Re-examined, Improved Medical Decision Making Medical Decision Makin:00 Patient is being signed out to me by Kendell Ybarra III, DO pending CT abdomen and reevaluation. 19:59 CT abdomen and pelvis with IV contrast read and reviewed by radiologist FINDINGS: RESEARCH TECHNICIAN shunt is present along the left anterior abdominal wall, but coils upon itself at its distal end, within the subcutaneous fat of the left anterior abdominal wall. 2.7 x 2.1 cm area of fluid surrounds the distal coiled tip of the shunt. LUNG BASES: The lung bases appear clear. No pleural effusions are seen. LIVER: Unremarkable. GALLBLADDER AND BILE DUCTS: The gallbladder appears within normal limits. No radioopaque gallstones are seen. No biliary ductal dilatation is evident. PANCREAS: Unremarkable. SPLEEN: Unremarkable. ADRENAL GLANDS: Unremarkable. KIDNEYS, URETERS, AND BLADDER: The kidneys appear within normal limits. There is no hydronephrosis or hydroureter. No urinary calculi are seen. STOMACH AND BOWEL: Unremarkable appearance of the stomach and bowel. No evidence of bowel obstruction. No evidence suggesting enteritis or colitis. APPENDIX: No evidence of acute appendicitis on CT examination. PERITONEUM: No free fluid. No free air. LYMPH NODES: No lymphadenopathy is evident. VASCULATURE: No evidence of abdominal aortic aneurysm. BONES: No aggressive appearing osseous lesion. No acute osseous pathology evident. IMPRESSION: RESEARCH TECHNICIAN shunt terminates and coils upon itself within the subcutaneous fat of the left anterior abdominal wall, surrounded by 2.7 cm area of fluid. Scribe Attestation: Documented Sandi Santos, acting as a scribe for Lindsey Hendricks MD. Provider Scribe Attestation: All medical record entries made by the Scribe were at my direction and personally dictated by me. I have reviewed the chart and agree that the record accurately reflects my personal performance of the history, physical exam, medi dawit decision making, and the department course for this patient. I have also personally directed, reviewed, and agree with the discharge instructions and disposition. Disposition Doctor Will See Patient In The: Office Counseled Patient/Family Regarding: Studies Performed, Diagnosis - Clinical Impression Clinical Impression: Complication of ventricular intracranial shunt - POA Present On Arrival: None - Disposition Disposition: Routine/Home Disposition Time: 21:21 Condition: GOOD Additional Instructions: Follow up with your neurosurgeon tomorrow. Return for worsening. YOGESH LALA, thank you for letting us take care of you today. Your provider was Lindsey Hendricks MD and you were treated for ABD PAIN. The emergency medical care you received today was directed at your acute symptoms. If you were prescribed any medication, please fill it and take as directed. It may take several days for your symptoms to resolve. Return to the Emergency Department if your symptoms worsen, do not improve, or if you have any other problems. Please contact your doctor or call one of the physicians/clinics you have been referred to that are listed on the Patient Visit Information form that is included in your discharge packet. Bring any paperwork you were given at discharge with you along with any medications you are taking to your follow up visit. Our treatment cannot replace ongoing medical care by a primary care p jamar outside of the emergency department. Thank you for allowing the [facility] team to be part of your care today. If you had an X-Ray or CT scan: A Radiologist will review the ED reading if any change in treatment is needed we will contact you. If you had a blood, urine, or wound culture: It will take several days for the results, if any change in treatment is needed we will contact you. If you had an STI test: It will take 48 hours for the results. Please call after 1 week if you have not heard back. Instructions: Ventriculoperitoneal Shunt, Adult
[2018-06-28 22:32] VITALS: BP 131/79; PULSE 75; TEMP 98.5
[2018-06-29 00:22] VITALS: O2SAT 100
--- NOTE | 2018-06-29 14:24 | CT ---
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 TECHNIQUE: Following the intravenous administration of iodinated contrast material, a CT examination of the abdomen and pelvis performed from the domes of the diaphragms to the symphysis pubis with reformatted datasets provided in axial, sagittal and coronal planes. Oral contrast was not administered as per referring physician request. Coronal and sagittal reformats were generated. Contrast dose: Omnipaque 300, 95 cc Radiation dose: Total exam DLP = 461.66 mGy-cm. This CT exam was performed using one or more of the following dose reduction techniques: Automated exposure control, adjustment of the mA and/or kV according to patient size, and/or use of iterative reconstruction technique. FINDINGS: LOWER THORAX: Continuous tubing is seen at the left chest wall anteriorly from ventricular peritoneal shunt catheter entering into the abdomen. No suspicious pulmonary, cardiac or pleural findings. Linear atelectasis or fibrosis in the left lower lobe base. LIVER: There is a stable tiny lucency identified at the right lobe liver laterally measuring under 1 cm size. Enhancement is still in the arterial phase limiting the interpretation. GALLBLADDER AND BILE DUCTS: Unremarkable. PANCREAS: Unremarkable. No gross lesion or ductal dilatation. SPLEEN: Unremarkable. ADRENALS: Unremarkable. No mass. KIDNEYS AND URETERS: Unremarkable. No hydronephrosis. No solid mass. VASCULATURE: Unremarkable. No aortic aneurysm. No aortic atherosclerotic calcification or mural plaque present. BOWEL: Moderate fecal retention is seen throughout the colon.. No obstruction. No gross mural thickening. APPENDIX: Normal appendix. PERITONEUM: There is a tiny umbilical hernia containing only fat. No measure edema or ascites identified. No free intra peritoneal gas collection. The reported ventricular shunt catheter is seen terminating at the left giuliana abdominal wall with fluid surrounding the coiled distal portion measuring 2.9 x 2.6 cm. There is no intra peritoneal component of the catheter which terminates at the wall and not the intra peritoneal space. LYMPH NODES: Unremarkable. No enlarged lymph nodes. BLADDER: Unremarkable. REPRODUCTIVE: Unremarkable. BONES: No acute fracture. OTHER FINDINGS: None. IMPRESSION: Apparent ventriculoperitoneal shunt catheter terminates at the subcutaneous fat of the left giuliana abdominal wall with 2.9 cm fluid collection surrounding the distal coil. It does not enter into the peritoneal space in the abdomen. Lesser findings as discussed above.
== END 2018-06-28 22:32 | disposition home or self-care (01) ==
LOC: H.ER 16:13
DX: R10.9 Unspecified abdominal pain (principal); T85.09XA Other mechanical complication of ventricular intracranial (communicating) shunt, initial encounter; Z98.2 Presence of cerebrospinal fluid drainage device
CPT/HCPCS: 74177; 80053; 85025; 99284; Q9967

== ENCOUNTER 2018-07-24 20:33 | Emergency (ER) | payer OTHER ==
[2018-07-24 20:33] VITALS: BMI 19.8
[2018-07-24 21:59] VITALS: RESP 20; TEMP 98; O2SAT 98
[2018-07-24] MEDS ORDERED: Metoprolol 1 mg/ml Inj IVP ONE (22:12)
[2018-07-24 22:57] LABS: BASO % 0.8 % (0.0-2.0); EOS % 0.2 % (0.0-4.0); LYMPH # 2.1 K/uL (1.0-4.3); LYMPH % 37.2 % (20.0-40.0); MEAN CELL VOLUME 92.4 fl (81.0-99.0); MEAN CORPUSCULAR HEMOGLOBIN 30.4 pg (27.0-31.0); MEAN CORPUSCULAR HGB CONC 32.9 g/dL (33.0-37.0); MEAN PLATELET VOLUME 8.4 fl (7.2-11.7); MONO # 0.5 K/uL (0.0-0.8); MONO % 8.5 % (0.0-10.0); NEUT % 53.3 % (50.0-75.0); NRBC % 0.1 % (0.0-0.0); RBC 4.61 Mil/uL (3.80-5.20); RED CELL DISTRIBUTION WIDTH 13.8 % (11.5-14.5); WHITE BLOOD COUNT 5.6 K/uL (4.8-10.8)
[2018-07-24 23:00] LABS: PROTHROMBIN TIME 11.6 Seconds (9.8-13.1)
[2018-07-24 23:02] LABS: BLOOD UREA NITROGEN 7 mg/dl (7-17); CALCIUM 9.2 mg/dL (8.4-10.2); GFR NON-AFRICAN AMERICAN > 60
[2018-07-24 23:03] LABS: PARTIAL THROMBOPLASTIN TIME 35.7 Seconds (25.6-37.1)
--- NOTE | 2018-07-24 23:45 | ED PDOC ---
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 Reports compliance with propranolol but still had elevated readings at home with a bilateral throbbing headache. States that she has had episodes like these in the past. States the headache was not thunderclap and not maximal in onset but reports that it was going away earlier this evening and then it got worse. Denies vision changes, numbness, weakness, loss of function, or any other symptoms. Past Medical History Reviewed: Historical Data, Nursing Documentation, Vital Signs Vital Signs: Last Vital Signs Temp 98.0 F 07/24/18 21:56 Pulse 77 07/24/18 22:45 Resp 20 07/24/18 21:56 BP 144/110 H 07/24/18 22:45 Pulse Ox 98 07/24/18 21:56 - Medical History PMH: Anxiety, Arthritis, Cardia Arrhythmia (TACHYCARDIA), Depression, Diabetes, Gastritis, GERD, HTN, Hyperthyroidism, Migraine, Pneumonia, Seizures Denies: Hepatitis, Hypothyroidism, Chronic Kidney Disease - Surgical History Surgical History: Endoscopy - Family History Family History: States: Unknown Family Hx - Immunization History Hx Tetanus Toxoid Vaccination: No Hx Influenza Vaccination: No Hx Pneumococcal Vaccination: Yes - Home Medications Home Medications: Ambulatory Orders Medication Instructions Recorded Propranolol [Inderal] 20 mg PO BID 12/07/15 ALPRAZolam [Xanax] 1 mg PO DAILY 12/03/16 Metoclopramide HCl [Reglan] 5 mg PO TID 09/30/17 - Allergies Allergies/Adverse Reactions: Allergies Allergy/AdvReac Type Severity Reaction Status Date / Time No Known Allergies Allergy Verified 07/24/18 21:56 Review of Systems Neurological: Positive for: Headache Physical Exam - Reviewed Nursing Documentation Reviewed: Yes Vital Signs Reviewed: Yes - Physical Exam Appears: Positive for: Well, Uncomfortable Head Exam: Positive for: ATRAUMATIC, NORMAL INSPECTION (Palpable FIRE WATCHER shunt, normal appearance), NORMOCEPHALIC Skin: Positive for: Normal Color, Warm, DRY Eye Exam: Positive for: EOMI, Normal appearance, PERRL ENT: Positive for: Normal ENT Inspection Neck: Positive for: Normal, Painless ROM Cardiovascular/Chest: Positive for: Regular Rate, Rhythm Respiratory: Positive for: CNT, Normal Breath Sounds Gastrointestinal/Abdominal: Positive for: Normal Exam, Soft Back: Positive for: Normal Inspection Extremity: Positive for: Normal ROM Neurologic/Psych: Positive for: Alert, 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 Negative for: Motor/Sensory Deficits, Facial Droop - Laboratory Results Result Diagrams: 07/24/18 22:49 07/24/18 22:49 - ECG O2 Sat by Pulse Oximetry: 98 Pulse Ox Interpretation: Normal Medical Decision Making Medical Decision MakinPM Patient presenting with headache and elevated BP --Currently neuro intact, not concerned for acute intracranial bleed --Will monitor patient and bring BP down slowly and re-eval for possible imaging 1100PM --BP is lowering on its own without beta pia therapy --Patient already reporting feeling better --Reglan given 1145PM --Patient is very well appearing, smiling, reports no headache --BP 138/70 currently, HR normal --Advised patient to followup with Dr. Krishnamurthy --Much improved, gracious, and well appearing upon discharge Disposition - Clinical Impression Clinical Impression: Hypertension, Migraine - Patient ED Disposition Is Patient to be Admitted: No - Disposition Referrals: Jojo Krishnamurthy MD [Medical Doctor] - Disposition Time: 23:50 Condition: GOOD Instructions: High Blood Pressure in Adults, Headache, Adult
[2018-07-25 00:35] VITALS: BP 131/79; PULSE 84
--- NOTE | 2018-07-25 17:36 | CARD ---
APPROVED REPORT Date of service: 07/24/2018 EKG Measurement Heart [id number] <Conclusion> Normal sinus rhythm Right bundle branch block Minimal voltage criteria for LVH, may be normal variant Abnormal ECG
== END 2018-07-25 00:08 | disposition home or self-care (01) ==
LOC: H.ER 20:33
DX: G43.909 Migraine, unspecified, not intractable, without status migrainosus (principal); I10 Essential (primary) hypertension; E05.90 Thyrotoxicosis, unspecified without thyrotoxic crisis or storm; E11.9 Type 2 diabetes mellitus without complications; G40.909 Epilepsy, unspecified, not intractable, without status epilepticus; Z98.2 Presence of cerebrospinal fluid drainage device
CPT/HCPCS: 80048; 84484; 85025; 85610; 85730; 93005; 96374; 99285; J2765

== ENCOUNTER 2018-11-14 22:57 | Emergency (ER) | payer MEDICAID, OTHER ==
[2018-11-14 22:57] VITALS: BMI 19.8
[2018-11-14 23:10] VITALS: TEMP 97.9
--- NOTE | 2018-11-14 23:29 | ED PDOC ---
HPI: Female Pain Time Seen by Provider: 11/14/18 23:28 Chief Complaint (Nursing): Female Genitourinary Chief Complaint (Provider): URINARY DISCOMFORT History Per: Patient (48 Y/O FEMALE h/o brain ca with tumor removal and [employer] shunt placed, DM, HTN HERE WITH URINARY DISCOMFORT. DENIES ANY FEVERS/CHILLS. NOtes LLQ abd pain and diarrhea.. NO VOMITING.) Past Medical History Reviewed: Historical Data, Nursing Documentation, Vital Signs Vital Signs: Last Vital Signs Temp 97.9 F 11/14/18 23:06 Pulse 94 H 11/14/18 23:06 Resp 16 11/14/18 23:06 BP 177/103 H 11/14/18 23:06 Pulse Ox 97 11/14/18 23:06 - Medical History PMH: Anxiety, Arthritis, Cardia Arrhythmia (TACHYCARDIA), Depression, Diabetes, Gastritis, GERD, HTN, Hyperthyroidism, Migraine, Pneumonia, Seizures Denies: Hepatitis, Hypothyroidism, Chronic Kidney Disease - Surgical History Surgical History: Endoscopy - Family History Family History: States: Unknown Family Hx - Immunization History Hx Tetanus Toxoid Vaccination: No Hx Influenza Vaccination: No Hx Pneumococcal Vaccination: Yes - Home Medications Home Medications: Ambulatory Orders Medication Instructions Recorded Propranolol [Inderal] 20 mg PO BID 12/07/15 ALPRAZolam [Xanax] 1 mg PO DAILY 12/03/16 Metoclopramide HCl [Reglan] 5 mg PO TID 09/30/17 - Allergies Allergies/Adverse Reactions: Allergies Allergy/AdvReac Type Severity Reaction Status Date / Time No Known Allergies Allergy Verified 11/14/18 23:06 Review of Systems ROS Statement: Except As Marked, All Systems Reviewed And Found Negative Physical Exam - Reviewed Nursing Documentation Reviewed: Yes Vital Signs Reviewed: Yes - Physical Exam Appears: Positive for: Well, Non-toxic, No Acute Distress Head Exam: Positive for: ATRAUMATIC, NORMAL INSPECTION, NORMOCEPHALIC Skin: Positive for: Normal Color, Warm, DRY Eye Exam: Positive for: EOMI, Normal appearance, PERRL ENT: Positive for: Normal ENT Inspection Neck: Positive for: Normal, Painless ROM Cardiovascular/Chest: Positive for: Regular Rate, Rhythm Respiratory: Positive for: CNT, Normal Breath Sounds Gastrointestinal/Abdominal: Positive for: Normal Exam, Soft Back: Positive for: Normal Inspection Extremity: Positive for: Normal ROM Neurological/Psych: Positive for: Awake, Alert, Normal Tone - Laboratory Results Urine dip results: Positive for: Leukocyte Esterase (trace). Negative for: Blood, Nitrate, Ketones, Glucose, Bilirubin, Protein - ECG O2 Sat by Pulse Oximetry: 97 Disposition - Clinical Impression Clinical Impression: Abdominal pain, Abdominal pain - Disposition Disposition: Transfer of Care Disposition Time: 23:54 Condition: FAIR Patient Signed Over To: Ariadne Larkin Handoff Comments: pending bloodwork/CT abd/pelvis/UA
[2018-11-14] MEDS ORDERED: Sodium Chloride 0.9% 1,000 ML IV STA (23:57)
--- NOTE | 2018-11-15 00:05 | ED PDOC ---
- Laboratory Results Result Diagrams: 11/15/18 00:10 11/15/18 00:10 - ECG O2 Sat by Pulse Oximetry: 97 Medical Decision Making Medical Decision Making: Patient endorsed to me by FELIPA Molina pending labs and abdominal CT. Patient and daughter refused CT scan stating that the neurosurgeon has repeatedly reminded them to not have CT scans without speaking with him. It was explained to patient that U/A is unremarkable for UTI and that blood work is unremarkable. Without CT scan, unable to provide accurate diagnosis of abdominal pain with differential including diverticulitis. Patient and daughter demonstrated understanding and continue to refuse CT scan until they speak with her neurosurgeon. Patient signed AMA and understands risks. Prior to D/C, BP checked and noted to be 182/120s and patient with HERNANDEZ (unsure which began first). She did not take her evening dose of Propranolol. Clonidine 0.1mg PO x 1 ordered after drug interactions with Keppra, Tapazole and Buspar verified. 02:50: re-evaluated, HERNANDEZ has resolved and repeat BP 119/74, no neurological complaints, ambulated to bathroom without difficulty. Disposition - Clinical Impression Clinical Impression: Abdominal pain - POA Present On Arrival: None - Disposition Referrals: Hugh Nunn MD [Non-Staff] - Duane Dumas MD [Staff Provider] - Disposition: AGAINST MEDICAL ADVICE Disposition Time: 02:56 Condition: FAIR Additional Instructions: Return to ER if your abdominal pain worsens or you develop weakness. Do not take your Propranolol until your morning dose is due to avoid further blood pressure lowering. Instructions: Acute Abdomen (Belly Pain), Adult (DC) Forms: Mett[employer] (Lithuanian) Print Language: THAI
[2018-11-15 00:06] LABS: SQUAMOUS EPITHIAL 7 /hpf (0-5); URINE BILIRUBIN NEGATIVE (NEGATIVE); URINE BLOOD NEGATIVE (NEGATIVE); URINE CLARITY CLOUDY (Clear); URINE COLOR YELLOW (YELLOW); URINE GLUCOSE (UA) NEG (NEGATIVE); URINE LEUKOCYTE ESTERASE SMALL Leu/uL (Negative); URINE PROTEIN NEGATIVE (NEGATIVE); URINE UROBILINOGEN 0.2-1.0 mg/dL (0.2-1.0)
[2018-11-15 00:21] LABS: BASO # 0.1 K/uL (0.0-0.2); BASO % 0.8 % (0.0-2.0); EOS # 0.1 K/uL (0.0-0.7); EOS % 0.9 % (0.0-4.0); HEMOGLOBIN 13.6 g/dL (12.0-16.0); LYMPH # 2.2 K/uL (1.0-4.3); MEAN CORPUSCULAR HEMOGLOBIN 30.7 pg (27.0-31.0); MEAN CORPUSCULAR HGB CONC 33.4 g/dL (33.0-37.0); MEAN PLATELET VOLUME 8.4 fl (7.2-11.7); MONO # 0.6 K/uL (0.0-0.8); MONO % 7.4 % (0.0-10.0); NEUT % 62.9 % (50.0-75.0); NRBC % 0.1 % (0.0-0.0); RBC 4.41 Mil/uL (3.80-5.20); RED CELL DISTRIBUTION WIDTH 13.6 % (11.5-14.5)
[2018-11-15 00:41] LABS: ALB/GLOB RATIO 1.3 (1.0-2.1); ALT/SGPT 23 U/L (9-52); AST/SGOT 20 U/L (14-36); BLOOD UREA NITROGEN 7 mg/dl (7-17); CALCIUM 9.6 mg/dL (8.4-10.2); GFR NON-AFRICAN AMERICAN > 60; LIPASE 99 U/L (23-300)
[2018-11-15 01:34] VITALS: RESP 17
[2018-11-15 02:34] VITALS: PULSE 83
[2018-11-15 02:49] VITALS: BP 119/74
[2018-11-15 02:53] VITALS: O2SAT 97
== END 2018-11-15 03:10 | disposition left against medical advice (07) ==
LOC: H.ER 22:57
DX: R10.32 Left lower quadrant pain (principal); E11.9 Type 2 diabetes mellitus without complications; Z86.59 Personal history of other mental and behavioral disorders; I10 Essential (primary) hypertension; Z98.2 Presence of cerebrospinal fluid drainage device; E05.90 Thyrotoxicosis, unspecified without thyrotoxic crisis or storm